=== PATIENT | female | born 1965 | race Caucasian/White ===

== ENCOUNTER 2018-01-04 10:48 | Emergency (ER) | payer OTHER | END 2018-01-04 14:11 | disposition home or self-care (01) | LOC: FTE 10:48 | DX: M54.5 Low back pain (principal) | CPT/HCPCS: 72100; 73562; 99284-25 ==

== ENCOUNTER 2018-03-10 18:47 | Emergency (ER) | payer OTHER ==
[2018-03-10] MEDS: KETOROLAC 30 MG INJ IM (21:54)
[2018-03-10] MEDS: ACETAMINOPHEN 325 MG TAB PO (21:54)
== END 2018-03-10 22:18 | disposition home or self-care (01) ==
LOC: FTE 18:47
DX: M25.562 Pain in left knee (principal); G89.29 Other chronic pain
CPT/HCPCS: 96372; 99284-25

== ENCOUNTER 2019-03-01 13:17 | Emergency (ER) | payer OTHER ==
[2019-03-01] MEDS: KETOROLAC 60 MG INJ IM (14:08)
[2019-03-01] MEDS: DEXAMETHASONE 10 MG/ML 1 ML INJ IM (14:08)
== END 2019-03-01 14:30 | disposition home or self-care (01) ==
LOC: FTE 13:17
DX: M54.42 Lumbago with sciatica, left side (principal)
CPT/HCPCS: 96372; 99284-25